=== PATIENT | female | born 1980 | race African-American/Black ===

== ENCOUNTER 2019-08-29 21:53 | Inpatient (IN) | payer OTHER ==
[~2019-08-29] VITALS: Ht 157.5 cm; Wt 84.4 kg
[2019-08-29 21:56] VITALS: BP 139/103
[2019-08-29 22:26] LABS: ABSOLUTE NEUTROPHILS 2.5 thou/uL (1.4-8.2); EOSINOPHILS 2.9 % (0.0-3.0); HEMATOCRIT 37.2 % (37.0-47.0); HEMOGLOBIN 12.1 gm/dL (12.0-15.0); LYMPHOCYTES 53.5 % (24.0-44.0); MCH 26.8 pg (26.0-34.0); MCHC 32.5 g/dL (28.0-37.0); MCV 82.4 fL (80.0-100.0); MONOCYTES 8.8 % (1.0-8.0); PLATELET COUNT 280 thou/uL (150-400); POLYS 33.8 % (36.0-66.0); RBC 4.51 mil/uL (4.20-5.00); RDW 13.6 % (10.5-14.5); WBC 7.3 thou/uL (4.0-11.0)
[2019-08-29 22:32] LABS: URINE BILIRUBIN NEGATIVE (Negative); URINE BLOOD TRACE (Negative); URINE CLARITY CLEAR; URINE COLOR YELLOW; URINE GLUCOSE-RANDOM* NEGATIVE (Negative); URINE KETONES NEGATIVE (Negative); URINE LEUKOCYTES-REFLEX NEGATIVE (Negative); URINE NITRITE-REFLEX NEGATIVE (Negative); URINE PROTEIN (DIPSTICK) NEGATIVE (Negative); URINE SPECIFIC GRAVITY <= 1.005 (1.005-1.035); URINE UROBILINOGEN 0.2 E.U./dl (0.2-1.0)
[2019-08-29 22:35] LABS: ANION GAP 11 mmol/L (7-16); BUN 9 mg/dL (7-18); CALCIUM 8.6 mg/dL (8.5-10.1); CHLORIDE 104 mmol/L (98-107); CO2 23 mmol/L (21-32); CREATININE 0.9 mg/dL (0.6-1.0); GLUCOSE 99 mg/dL (74-106); POTASSIUM 3.5 mmol/L (3.5-5.1); SODIUM 138 mmol/L (136-145)
[2019-08-29 22:37] LABS: APTT 26.2 Seconds (24.5-32.8); INR 1.1; PROTIME 11.4 Seconds (9.3-11.4)
[2019-08-29 22:41] LABS: ALBUMIN 3.7 g/dL (3.4-5.0); DIRECT BILIRUBIN < 0.1 mg/dL (<0.1-0.3); SGOT 15 U/L (15-37); SGPT 26 U/L (30-65); TOTAL BILIRUBIN 0.3 mg/dL (<0.1-1.0); TOTAL PROTEIN 7.1 g/dL (6.4-8.2)
[2019-08-29 23:22] VITALS: BP 139/103
[2019-08-30 00:20] VITALS: BP 128/84
[2019-08-30 00:37] VITALS: BP 127/88
--- NOTE | 2019-08-30 02:31 | NUR ---
PT arrived to 3W around 0030. Nursing oriented patient and completed admission checklist. The PT was advised to call for assistance to get up. Nursing will continue to monitor.
--- NOTE | 2019-08-30 04:59 | NUR ---
Patient turns self. Nursing will continue to monitor.
[2019-08-30 05:03] VITALS: BP 119/81
[2019-08-30 06:34] LABS: ANION GAP 9 mmol/L (7-16); BUN 8 mg/dL (7-18); CALCIUM 8.8 mg/dL (8.5-10.1); CHLORIDE 105 mmol/L (98-107); CHOLESTEROL 163 mg/dL (<200); CO2 25 mmol/L (21-32); CREATININE 0.9 mg/dL (0.6-1.0); GLUCOSE 103 mg/dL (74-106); HDL CHOLESTEROL 49 mg/dL (>40); LDL CHOLESTEROL 106 mg/dL (<100); POTASSIUM 3.7 mmol/L (3.5-5.1); SODIUM 139 mmol/L (136-145); TC:HDL 3.3 Ratio (Not establshd); TRIGLYCERIDE 41 mg/dL (<150); VLDL 8 mg/dL (<40)
[2019-08-30 06:38] LABS: SERUM ASSESSMENT Clear
[2019-08-30 07:14] VITALS: BP 111/69
[2019-08-30 15:24] VITALS: BP 131/83
--- NOTE | 2019-08-30 17:58 | NUR ---
PT WITH SLIGHT WEAKNESS...UP WITH STANDBY ASSIST...SOME VERTIGO NOTED...FALL PREC IN PLACE..
[2019-08-30 19:00] VITALS: BP 123/79
[2019-08-31 00:08] LABS: GLYCOHEMOGLOBIN (HGB A1C) 5.6 % (4.8-5.6)
[2019-08-31 03:59] VITALS: BP 135/77
--- NOTE | 2019-08-31 05:24 | NUR ---
ASSUMED CARE AT 1900. PT DENIED HEADACHE, BUT REPORTED FEELING DIZZY AND STILL HAVING SLIGHT WEAKNESS TO RIGHT HAND STAGE DIRECTOR; LATER NEURO CHECKS PT REPORTED DIZZINESS AND WEAKNESS WERE BOTH IMPROVED. DENIED NAUSEA OR SOB. MULTIPLE TIMES OVERNIGHT, PT'S TELE ALARMED AT A EDISON RATE; WHEN CHECKING THE RHYTHM, PT HAD MULTIPLE LENGTHENING CO INTERVALS AND P-WAVES WITHOUT QRS COMPLEXES FOLLOWING-- THOUGH IN A [place]HEBACH RHYTHM. NO OTHER CONCERNS, WILL CONTINUE TO MONITOR.
[2019-08-31 07:21] VITALS: BP 127/89
--- NOTE | 2019-08-31 11:14 | EKG ---
[address] [place] [place] [address] ELECTROCARDIOGRAM REPORT Name: SIDRAFLORENCIA Room #: 349-I ADM IN M.R.#: [id number] Admission: 08/29/19 Attend Phys: Rubio Reyes MD Discharge: Date of : 76 Report #: [id number] THIS REPORT FOR: //name// [facility] ED Test Date: 2019-08-29 Test Time: 22:38:27 Pat Name: FLORENCIA VALENTE Department: Room: 349 Gender: F Azure Principal Solution Specialist: MAIKEL : 1980 Requested By: Tesha Washington Order Number: [id number] MD: Kaleb Bob Measurements Intervals [employer] Rate: 88 P: 34 MI: 204 QRS: 21 QRSD: 80 T: 9 QT: 368 QTc: 446 Interpretive Statements Sinus rhythm Borderline prolonged MI interval Left atrial enlargement No previous ECG available for comparison Electronically Signed On 08-31-2019 11:13:58 BOAT OPERATOR by Kaleb Bob [email or web address] <ELECTRONICALLY SIGNED> By: Kaleb Bob MD 08/31/19 1113 37 37 Kaleb Bob MD /CHU
--- NOTE | 2019-08-31 11:23 | EKG ---
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
[2019-08-31] MEDS ORDERED: NORTRIPTYLINE H50 M3 PO (11:39)
--- NOTE | 2019-08-31 12:00 | NUR ---
PT REPORTS WEAKNESS HAS IMPROVED... HAS WRITTEN DISCHARGE ORDERS...
[2019-08-31 12:17] VITALS: BP 127/89
--- NOTE | 2019-09-01 07:47 | NUR ---
PATIENT DISCHARGED BEFORE OCCUPATIONAL THERAPY EVALUATION COULD BE INITIATED.
== END 2019-08-31 13:44 | disposition home or self-care (01) | DRG 69 ==
LOC: ER 21:53 → EROBS 23:17 → 3W 08-30 00:17
PROVIDERS: Emergency Medicine; Nurse Practitioner Family; ADMIT Hospitalist
DX: G45.9 Transient cerebral ischemic attack, unspecified (principal); G43.909 Migraine, unspecified, not intractable, without status migrainosus; G93.0 Cerebral cysts; Z82.49 Family history of ischemic heart disease and other diseases of the circulatory system; Z80.8 Family history of malignant neoplasm of other organs or systems; Z86.73 Personal history of transient ischemic attack (TIA), and cerebral infarction without residual deficits; Z79.899 Other long term (current) drug therapy
CPT/HCPCS: 10879

== ENCOUNTER 2020-04-06 22:34 | Emergency (ER) | payer OTHER ==
[~2020-04-06] VITALS: Ht 157.5 cm; Wt 86.2 kg
[~2020-04-06 22:34] MED LIST: NORTRIPTYLINE H50 M3 PO; TYLENOL WITH CO1 TA1 PO; VALIUM2 MG PO
[2020-04-06] MEDS ORDERED: NOHOMEMEDICATIONS (22:53)
[2020-04-07 01:10] VITALS: BP 132/93
== END 2020-04-07 01:15 | disposition home or self-care (01) ==
LOC: ER 22:34
DX: J06.9 Acute upper respiratory infection, unspecified (principal); B97.89 Other viral agents as the cause of diseases classified elsewhere; G43.909 Migraine, unspecified, not intractable, without status migrainosus; Z79.899 Other long term (current) drug therapy; Z20.828 Contact with and (suspected) exposure to other viral communicable diseases

== ENCOUNTER 2020-06-02 07:11 | Emergency (ER) | payer OTHER ==
[~2020-06-02] VITALS: Ht 157.5 cm; Wt 86.2 kg
[~2020-06-02 07:11] MED LIST changes: +NOHOMEMEDICATIONS
[2020-06-02 07:39] LABS: ABSOLUTE NEUTROPHILS 3.6 thou/uL (1.4-8.2); BASOPHILS 0.6 % (0.0-2.0); HEMOGLOBIN 12.8 gm/dL (12.0-15.0); LYMPHOCYTES 39.3 % (24.0-44.0); MCH 27.8 pg (26.0-34.0); MCHC 33.6 g/dL (28.0-37.0); MCV 82.8 fL (80.0-100.0); MONOCYTES 7.6 % (1.0-8.0); PLATELET COUNT 277 thou/uL (150-400); POLYS 49.5 % (36.0-66.0); RBC 4.59 mil/uL (4.20-5.00); RDW 13.9 % (10.5-14.5); WBC 7.2 thou/uL (4.0-11.0)
[2020-06-02 07:41] LABS: ANION GAP 13 mmol/L (7-16); BUN 15 mg/dL (7-18); CALCIUM 8.3 mg/dL (8.5-10.1); CHLORIDE 103 mmol/L (98-107); CO2 22 mmol/L (21-32); CREATININE 0.9 mg/dL (0.6-1.0); GLUCOSE 108 mg/dL (74-106); POTASSIUM 3.9 mmol/L (3.5-5.1); SODIUM 138 mmol/L (136-145)
--- NOTE | 2020-06-02 07:47 | EKG ---
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 : 1980 Requested By: Chepe Stevens Order Number: [id number] MD: Timmy Styles Measurements Intervals [place] Rate: 74 P: 12 [place]: 182 QRS: 11 QRSD: 89 T: 2 QT: 372 QTc: 413 Interpretive Statements Sinus rhythm Left ventricular hypertrophy Baseline wander in lead(s) V2,V3,V4,V5 Compared to ECG 08/31/2019 08:10:21 T-wave abnormality no longer present Electronically Signed On 06-02-2020 7:47:25 CDT by Timmy Styles [email or web address] <ELECTRONICALLY SIGNED> By: Timmy Styles MD, [facility] 06/02/20 0747 5 5 Timmy Styles MD, [facility] /EPI
[2020-06-02 07:50] LABS: TROPONIN-I <0.06 ng/mL (<0.06)
[2020-06-02] MEDS ORDERED: NAPROSYN500 MG PO (08:24)
[2020-06-02 08:39] VITALS: BP 144/76
== END 2020-06-02 08:39 | disposition home or self-care (01) ==
LOC: ER 07:11
PROVIDERS: Emergency Medicine
DX: M79.622 Pain in left upper arm (principal); R20.0 Anesthesia of skin; R20.2 Paresthesia of skin; G43.909 Migraine, unspecified, not intractable, without status migrainosus; Z86.73 Personal history of transient ischemic attack (TIA), and cerebral infarction without residual deficits; Z98.51 Tubal ligation status

== ENCOUNTER 2021-09-19 15:57 | Emergency (ER) | payer OTHER ==
[~2021-09-19] VITALS: Ht 157.5 cm; Wt 86.2 kg
[~2021-09-19 15:57] MED LIST changes: +NAPROSYN500 MG PO
[2021-09-19 17:44] LABS: ABSOLUTE NEUTROPHILS 2.6 thou/uL (1.4-8.2); BASOPHILS 0.7 % (0.0-2.0); EOSINOPHILS 5.6 % (0.0-3.0); HEMATOCRIT 40.1 % (37.0-47.0); LYMPHOCYTES 49.7 % (24.0-44.0); MCH 26.9 pg (26.0-34.0); MCHC 32.5 g/dL (28.0-37.0); MCV 82.8 fL (80.0-100.0); MONOCYTES 10.8 % (1.0-8.0); PLATELET COUNT 304 thou/uL (150-400); POLYS 33.2 % (36.0-66.0); RBC 4.84 mil/uL (4.20-5.00); RDW 13.8 % (10.5-14.5); WBC 7.8 thou/uL (4.0-11.0)
[2021-09-19 17:56] LABS: ANION GAP 10 mmol/L (7-16); BUN 11 mg/dL (7-18); CALCIUM 8.5 mg/dL (8.5-10.1); CHLORIDE 104 mmol/L (98-107); CO2 25 mmol/L (21-32); CREATININE 1.1 mg/dL (0.6-1.0); GLUCOSE 88 mg/dL (74-106); POTASSIUM 4.4 mmol/L (3.5-5.1); SODIUM 139 mmol/L (136-145)
[2021-09-19 18:02] LABS: ALBUMIN 3.8 g/dL (3.4-5.0); SGOT 21 U/L (15-37); SGPT 39 U/L (14-59); TOTAL BILIRUBIN 0.3 mg/dL (0.2-1.0); TOTAL PROTEIN 7.7 g/dL (6.4-8.2)
[2021-09-19] MEDS ORDERED: PROAIR HFA8.5 GM INH ×2 (19:13→19:38)
[2021-09-19] MEDS ORDERED: TESSALON PERLE100 MG PO ×2 (19:13→19:38)
[2021-09-19 19:40] VITALS: BP 149/98
--- NOTE | 2021-09-20 14:00 | EKG ---
[place] [address] [facility] [place] [address] ELECTROCARDIOGRAM REPORT Name: FLORENCIA VALENTE [facility] [id number] Admission: 09/19/21 Attend Phys: Discharge: 09/19/21 Date of : 76 Report #: [id number] [facility] ED Test Date: 2021-09-19 Test Time: 16:11:58 Pat Name: FLORENCIA VALENTE Department: Room: Gender: F Under Trimmer: MERCY : 1980 Requested By: Mounika Rogers Order Number: [id number] MD: Timmy Styles Measurements Intervals [place] Rate: 103 P: 14 TN: 158 QRS: 12 QRSD: 74 T: -5 QT: 324 QTc: 424 Interpretive Statements Sinus tachycardia Probable left atrial enlargement Probable left ventricular hypertrophy Borderline T abnormalities, diffuse leads Baseline wander in lead(s) II,III,aVF Compared to ECG 06/02/2020 07:16:30 T-wave abnormality now present Sinus rhythm no longer present Electronically Signed On 09-20-2021 14:00:06 REINFORCED CONCRETE INSPECTOR by Timmy Styles [email or web address] <ELECTRONICALLY SIGNED> By: Timmy Styles MD, FACC 09/20/21 1400 10 10 Timmy Styles MD, FAC /EPI
== END 2021-09-19 19:40 | disposition home or self-care (01) ==
LOC: ER 15:57
PROVIDERS: Emergency Medicine
DX: J40 Bronchitis, not specified as acute or chronic (principal); Z20.822 Contact with and (suspected) exposure to COVID-19; J06.9 Acute upper respiratory infection, unspecified; G43.909 Migraine, unspecified, not intractable, without status migrainosus; Z98.51 Tubal ligation status; Z86.73 Personal history of transient ischemic attack (TIA), and cerebral infarction without residual deficits; Z79.899 Other long term (current) drug therapy